=== PATIENT | female | born 1940 ===

== ENCOUNTER → 2017-10-23 | Outpatient (CLI) | payer OTHER, BC ==
--- NOTE | 2017-10-25 14:12 | EEG Procedure Note ---
EEG Procedure Note Date of Service Oct 23, 2017. Start / End Times Start Time: 9:29 AM End Time: 9:50 AM Referring Physician Rianna Morales History This is a 77-year-old female with unresponsive episodes. EEG for further evaluation of possible seizure etiology. Description This is a 21 electrode EEG with a single channel dedicated to limited EKG. The electrodes were placed in accordance with the International 10-20 system. Frequent diffuse muscle artifact at times limited to the read of this EEG. At the start of this recording the patient was an awake state. Background was poorly organized with no well formed anterior to posterior gradient. Background was composed of symmetric moderate amplitude predominantly 5-6 Hz theta frequencies with intermixed faster frequencies. Hyperventilation was not done. Photic stimulation at various frequencies did not produce any abnormalities. There was no state changes or sleep transients. Interpretation This is an abnormal routine EEG secondary to moderate background disorganization and slowing. There was no electrographic seizures or epileptiform discharges. Clinical Correlation This EEG indicates a moderate encephalopathy of nonspecific etiology. Interpretation of this EEG was at times limited by diffuse muscle artifact.
== END | disposition home or self-care (01) ==
LOC: C.NEUR 09:12
PROVIDERS: ATTEND Psychiatry & Neurology Neurology
DX: R94.01 Abnormal electroencephalogram [EEG] (principal); R41.89 Other symptoms and signs involving cognitive functions and awareness